=== PATIENT | male | born 1965 | race Caucasian/White ===

== ENCOUNTER 2023-04-26 10:25 | Outpatient (CLI) | payer OTHER ==
--- NOTE | 2023-04-26 13:43 | XRAY Report ---
PROCEDURE: Cervical Spine 2 View INDICATIONS: LOWER BACK AND NECK PAIN TECHNIQUE: 3 view(s) of the cervical spine were acquired. COMPARISON: None. FINDINGS: Bones: No fractures or dislocations to the C7-T1 level. The lateral masses of C1 appear intact on t he odontoid view. No suspicious bony lesions. There is trace retrolisthesis of C3 on C4. Severe dis c space narrowing is present C3-4, C5-6 and moderate C6-7 as well as C2-3. Multilevel anterior osteop hytes as well as uncovertebral arthropathy are present. Soft tissues: No prevertebral soft tissue swelling. IMPRESSION: Multilevel degenerative changes as above. Reviewed by: Jackie Maddox MD on 04/26/2023 1:41 PM PDT Approved by: Jackie Maddox MD on 04/26/2023 1:41 PM PDT Station ID: [id number]
--- NOTE | 2023-04-26 13:44 | XRAY Report ---
PROCEDURE: Lumbar Spine 2 View INDICATIONS: LOW BACK PAIN TECHNIQUE: 2 views of the lumbar spine were acquired. COMPARISON: None. FINDINGS: Bones: 5 [id number] vertebrae are present. There is trace retrolisthesis of L2 on L3, L3 on L4 , L4-L5, trace anterolisthesis of L5 on S1. Moderate to severe foraminal narrowing is present L4-5, L 5-S1, mild to moderate L1-2, L3-4. Multilevel mild degenerative disc space narrowing is present most significant at L1-2, L3-4, L5-S1. Scattered anterior osteophytes are present.. No vertebral body com pression fractures. No suspicious bony lesions. Soft tissues: Overlying bowel gas pattern is normal. No suspicious soft tissue calcifications. IMPRESSION: Multilevel degenerative changes most severe at L5-S1. Reviewed by: Jackie Maddox MD on 04/26/2023 1:42 PM PDT Approved by: Jackie Maddox MD on 04/26/2023 1:42 PM PDT Station ID: [id number]
== END 2023-04-26 10:26 | disposition home or self-care (01) ==
LOC: DI 10:25
PROVIDERS: ATTEND Student in an Organized Health Care Education/Training Program
DX: M47.812 Spondylosis without myelopathy or radiculopathy, cervical region (principal); M47.816 Spondylosis without myelopathy or radiculopathy, lumbar region; M47.817 Spondylosis without myelopathy or radiculopathy, lumbosacral region